=== PATIENT | male | born 1970 | race Caucasian/White ===

== ENCOUNTER 2021-04-04 00:45 | Day surgery (SDCO) | payer OTHER ==
[2021-04-04 01:38] LABS: BASOPHIL 0.7 % (0-2); EOSINOPHIL 1.8 % (0-5); HCT 43.5 % (42.0-52.0); HGB 14.6 g/dl (13.2-18.0); LYMPHOCYTE 13.5 % (15-48); MCH 28.5 pg (25.0-31.0); MCHC 33.6 g/dL (32.0-36.0); MCV 84.8 fL (78.0-100.0); MONOCYTE 6.1 % (0-12); MPV 9.4 fL (6.0-9.5); NEUTROPHIL 77.6 % (41-80); NRBC 0; PLT 311 K/uL (150-400); RBC 5.13 M/uL (4.70-6.00); RDW 14.9 % (11.5-14.0); WBC 11.3 K/uL (4.0-10.5)
[2021-04-04 01:49] LABS: INR 1.06 (0.9-1.2); PROTHROMBIN TIME 13.1 SECONDS (11.4-13.6); PTT 30.7 SECONDS (22.2-34.7)
[2021-04-04 01:55] LABS: ALBUMIN 3.4 g/dL (3.4-5.0); BILIRUBIN - TOTAL 0.2 mg/dL (0.2-1.0); BUN/CREAT RATIO (CALC) 12.9 RATIO; CREATININE 0.85 mg/dL (0.67-1.17); GLOBULIN (CALCULATION) 3.5 g/dL; POTASSIUM 4.2 mmol/L (3.5-5.1); TOTAL PROTEIN 6.9 g/dL (6.4-8.2)
[2021-04-04 01:58] LABS: IRON % SATURATION 4.8 %SAT (20-50)
[2021-04-04 02:35] LABS: BILIRUBIN NEGATIVE (NEGATIVE); BLOOD NEGATIVE Ery/uL (NEGATIVE); CLARITY CLEAR (CLEAR); COLOR YELLOW (YELLOW); GLUCOSE (U) NORMAL (NORMAL); LEUKOCYTES NEGATIVE Leu/uL (NEGATIVE); NITRITE NEGATIVE (NEGATIVE); PROTEIN NEGATIVE (NEGATIVE); SPECIFIC GRAVITY <=1.005 (1.001-1.030); UROBILINOGEN 0.2 mg/dL (0.2-1.0)
[2021-04-04 04:00] LABS: HCT 43.9 % (42.0-52.0); HGB 14.1 g/dl (13.2-18.0); MCH 27.9 pg (25.0-31.0); MCHC 32.1 g/dL (32.0-36.0); MCV 86.9 fL (78.0-100.0); MPV 9.5 fL (6.0-9.5); RBC 5.05 M/uL (4.70-6.00); RDW 15.1 % (11.5-14.0); WBC 10.4 K/uL (4.0-10.5)
[2021-04-04 07:19] LABS: HCT 41.3 % (42.0-52.0); HGB 13.6 g/dL (13.2-18.0)
[2021-04-04] MEDS ORDERED: ATORVASTATIN CA40 MG PO (09:30)
[2021-04-04] MEDS ORDERED: TESSALON PERLE100 MG PO (09:32)
[2021-04-04] MEDS ORDERED: CIMETIDINE400 MG PO (09:33)
[2021-04-04] MEDS ORDERED: GABAPENTIN300 MG PO (09:36)
[2021-04-04] MEDS ORDERED: EDLUAR10 MG PO (09:37)
[2021-04-04] MEDS ORDERED: TESTOSTERO200 MG/1 M IM (09:39)
[2021-04-04] MEDS ORDERED: NORCO 5-325 TA1 EACH PO (09:42)
[2021-04-04] MEDS ORDERED: 3IN1 COMMODE (09:43)
--- NOTE | 2021-04-04 12:36 | NUR ---
REPORT GIVEN TO JESSICA MARQUEZ. PT TRANSFERRING TO MED SURG ROOM 210.
[2021-04-04 13:56] LABS: HCT 43.3 % (42.0-52.0); HGB 14.4 g/dL (13.2-18.0)
--- NOTE | 2021-04-04 16:46 | NUR ---
04/04/21 Patient and his girlfriend share a home together. He is supported by [facility] and reports to be able to meet his financial obligations. Patient reports to drink 6 - 12 beers every day or so. He is not interested in cessation. - No discharge planning needs are anticipated.
== END 2021-04-04 17:11 | disposition home or self-care (01) ==
LOC: FER 00:45 → FTCU 05:16 → FMS 12:24
PROVIDERS: Emergency Medicine; Nurse Practitioner; ADMIT Internal Medicine
DX: K92.2 Gastrointestinal hemorrhage, unspecified (principal); I10 Essential (primary) hypertension; E78.5 Hyperlipidemia, unspecified; M06.9 Rheumatoid arthritis, unspecified; U07.1 COVID-19; Z88.0 Allergy status to penicillin
CPT/HCPCS: 36415; 80053; 81003; 82550; 83540; 83550; 83690; 83735; 84484; 85014; 85018; 85025; 85610; 85730; 86850; 86900; 86901; 93005; G0378; J3411; J3475; J7120; Q9967; U0002